=== PATIENT | male | born 2000 | race Caucasian/White ===

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

== ENCOUNTER 2022-10-02 20:32 | Emergency (ER) | payer MEDICAID, SELFPAY ==
--- NOTE | 2022-10-02 20:30 | ECG_ITS ---
APPROVED REPORT Exam: Resting ECG HR:57 bpm ECG Measurements Heart Rate 57 AXES WI 120 P 47 QRSd 93 QRS 69 QT 400 T 49 QTc 394 Conclusion SINUS BRADYCARDIA BORDERLINE ECG UNCONFIRMED REPORT Electronically signed by : Spike Collazo MD 10/03/2022 13:14:31
[2022-10-02 20:32] VITALS: BP 145/80; PULSE 77; RESP 20; TEMP 36.8; O2SAT 100; BMI 35.4
--- NOTE | 2022-10-02 20:39 | XR_ITS ---
PROCEDURE INFORMATION: Exam: XR Chest Exam date and time: 10/02/2022 8:39 PM Age: 21 years old Clinical indication: Sternal or substernal pain and left-sided; Patient HX: Left sided rib pain, sternal pain SOA; Additional info: Chest/rib pain TECHNIQUE: Imaging protocol: Radiologic exam of the chest. Views: 2 views. COMPARISON: No relevant prior studies available. FINDINGS: Lungs: Unremarkable. No consolidation. Pleural spaces: Unremarkable. No pleural effusion. No pneumothorax. Heart/Mediastinum: Unremarkable. No cardiomegaly. Bones/joints: Unremarkable. IMPRESSION: No acute findings.
[2022-10-02 20:51] LABS: Basophils # 0.3 K/mm3 (0-0.2); Basophils % 2.8 % (0.1-2.0); Eosinophils # 0.1 K/mm3 (0.0-0.4); Eosinophils % 0.8 % (0.1-12.0); Hematocrit 50.8 % (42.0-52.0); Hemoglobin 16.3 g/dL (14.1-18.0); Lymphocytes # 1.7 K/mm3 (0.7-4.5); Lymphocytes % 18.9 % (10-50); Mean Corpuscular HGB Conc 32.1 g/dL (31.8-35.4); Mean Corpuscular Hemoglobin 30.3 pg (27.0-31.2); Mean Corpuscular Volume 94.3 fl (80-94); Mean Platelet Volume 7.7 fl (7.4-10.4); Monocytes # 0.8 K/mm3 (0.1-1.0); Monocytes % 8.6 % (1.7-9.3); Neutrophils # 6.1 K/mm3 (1.8-7.8); Neutrophils % 68.8 % (37.0-80.0); Platelet Count 283 K/mm3 (142-424); Red Blood Count 5.39 M/mm3 (4.60-6.20); Red Cell Distribution Width 13.1 % (11.5-17.5); White Blood Count 8.9 K/mm3 (4.5-13.0)
[2022-10-02 21:00] LABS: Anion Gap 18.8 mEq/L (5-15); Blood Urea Nitrogen 20 mg/dl (9-20); Calcium 9.8 mg/dl (8.4-10.2); Carbon Dioxide 26 mmol/L (22.0-30.0); Chloride 97 mmol/L (98-107); Creatinine Clearance Estimated 127 mL/min (50-200); Estimated Glomerular Filt Rate 78 ml/min (>60); GFR (African American) 94 ML/MIN (>60); Glucose 88 mg/dl (74-100); Potassium 3.8 mmoL/L (3.5-5.1); Sodium 138 mmol/L (136-145)
--- NOTE | 2022-10-02 21:08 | HMH.EDCP ---
Discharge Plan Disposition Patient Disposition: Home, Self-Care Prescriptions Prescriptions: New meloxicam 15 mg tablet 15 mg PO DAILY Qty: 10 0RF No Action tolnaftate 14.18 GM cream 14 gm TP BID 7 Days Qty: 1 0RF Rx Instructions: apply cream to groin bid Referrals Follow up/Referrals: Provider,Referral, [Primary Care Provider] - See instructions Clinical Impressions Clinical Impression: Acute traumatic injury of chest wall Instructions Patient Instructions: DI for Atypical Chest Pain Discharge ED Provider: Jeremie Ramirez Chest Pain HPI General Chief Complaint: Chest Pain Stated Complaint: SOA Time Seen by Provider: 10/02/22 21:08 Mode of Arrival: Ambulatory Source of Information: Patient and Medical Record Limitations: No Limitations Description of Symptoms (Recalled from ER Triage Doc. by RN): Pt c/o soa and left rib/sternum pain. He states last night his 80 pound dog ran into his chest and caused him pain and soa .He awoke today and the soa and pain have increased as the day has went along. He denies N/V, dizziness, radiating pain. Pain is reproducable with palpation to left rib cage. History of Present Illness HPI narrative: pt with acute injury to lt chest and upper abd after trauma last pm complaint: chest pain Onset (ago): day(s) Duration: intermittent Activity at onset: other (sitting ) Pain location: left chest Severity: moderate Quality: dull Exacerbating factors: inspiration and movement Context: trauma/injury ANGEL Score for Non-Stemi Age of Patient: <30 years old Heart Rate: 50-69 bpm Systolic Blood Pressure: 120-139 mmhg Serum Creatinine: 1.20-1.59 mg/dl CHF [place] Class: I-No CHF Other Risk Factors: None Non-Stemi Risk Score: 47 Related Data Previous Rx's Medication Instructions Recorded tolnaftate 1 % topical cream 14 gm TP BID 7 days ##1 05/31/20 meloxicam 15 mg tablet 15 mg PO DAILY #10 tabs 10/02/22 Allergies Allergy/AdvReac Type Severity Reaction Status Date / Time No Known Allergies Allergy Verified 05/31/20 20:47 [facility] Medical History (Updated 10/02/22 @ 22:44 by Jeremie Ramirez MD) Abdominal pain Social History Smoking Status: Current every day smoker tobacco type: cigarettes packs per day: 1 alcohol intake: never substance use type: denies use current occupational status: student Travel in the last 8 weeks: None household members: family housing: house ROS Obtained: Yes All systems reviewed & no additional complaints except as documented Physical Exam General General appearance: alert Head Head exam: normocephalic Eye Eye exam: Present PERRL and EOMI ENT ENT exam: Present mucous membranes moist Neck Neck exam: Present trachea midline Chest Chest inspection: Present tenderness Respiratory Respiratory exam: Present normal lung sounds bilaterally; Absent respiratory distress Cardiovascular Cardiovascular exam: Present regular rate Abdominal Exam Abdominal exam: Present soft and tenderness; Absent guarding Abdominal tenderness: Present LUQ and mild Extremities Exam Extremities exam: Present full ROM Neurological Exam Neurological exam: Present alert, oriented X3 and CN II-XII intact; Absent other Psychiatric Psychiatric exam: Present normal affect Skin Skin exam: Absent rash Medical Decision Making Medical Records Medical records reviewed: Yes I reviewed the patient's medical records. Johnny Inquiry Pt receiving controlled substance: No Vital Signs: 10/02/22 20:32 Temperature 98.3 F Temperature Source Oral Pulse Rate [Apical] 77 Respiratory Rate 20 Blood Pressure [Right Arm] 145/80 H Blood Pressure Mean [Right Arm] 101 Blood Pressure Source [Right Arm] Automatic Cuff Blood Pressure Position [Right Arm] Supine 02 Sat by Pulse Oximetry 100 Oxygen Delivery Method Room Air Lab Data Lab results reviewed: Yes I reviewed the patient's lab results. Lab Results 10/02/22 20:35: W
[2022-10-02 21:12] LABS: Troponin I < 0.01 ng/ml (0.00-0.034)
--- NOTE | 2022-10-02 21:14 | CT_ITS ---
PROCEDURE INFORMATION: Exam: CT Chest With Contrast; Diagnostic Exam date and time: 10/02/2022 9:33 PM Age: 21 years old Clinical indication: Left-sided; Patient HX: Left sided chest/rib pain; Additional info: Chest pain TECHNIQUE: Imaging protocol: Diagnostic computed tomography of the chest with contrast. 3D rendering (Not supervised by radiologist): MIP and/or 3D reconstructed images were created by the technologist. Radiation optimization: All CT scans at this facility use at least one of these dose optimization techniques: automated exposure control; mA and/or kV adjustment per patient size (includes targeted exams where dose is matched to clinical indication); or iterative reconstruction. Contrast material: ISOVUE; Contrast volume: 75 ml; Contrast route: IV; COMPARISON: CR XR CHEST 2V 10/02/2022 8:39 PM FINDINGS: Lungs: Unremarkable. No consolidation. No masses. Pleural spaces: Unremarkable. No pneumothorax. No pleural effusion. Heart: Unremarkable. No cardiomegaly. No pericardial effusion. Lymph nodes: Unremarkable. No enlarged lymph nodes. Vasculature: Unremarkable. No aortic aneurysm. Bones/joints: Unremarkable. No acute fracture. Soft tissues: Unremarkable. Other findings: Please see separate report for abdomen/pelvis. Stigmata of old granulomatous disease. IMPRESSION: No acute intrathoracic organ injury.
--- NOTE | 2022-10-02 21:16 | CT_ITS ---
PROCEDURE INFORMATION: Exam: CT Abdomen And Pelvis With Contrast Exam date and time: 10/02/2022 9:33 PM Age: 21 years old Clinical indication: Abdominal pain; Generalized; Patient HX: Luq pain; Additional info: Luq pain after injury TECHNIQUE: Imaging protocol: Computed tomography of the abdomen and pelvis with contrast. Radiation optimization: All CT scans at this facility use at least one of these dose optimization techniques: automated exposure control; mA and/or kV adjustment per patient size (includes targeted exams where dose is matched to clinical indication); or iterative reconstruction. Contrast material: ISOVUE; Contrast volume: 75 ml; Contrast route: IV; COMPARISON: CR XR CHEST 2V 10/02/2022 8:39 PM FINDINGS: Liver: Mild fatty infiltration of the liver along the falciform ligament. Gallbladder and bile ducts: Normal. No calcified stones. No ductal dilation. Pancreas: Normal. No ductal dilation. Spleen: Normal. No splenomegaly. Adrenal glands: Normal. No mass. Kidneys and ureters: Low attenuation renal lesions measuring up to 6 mm in diameter are incompletely characterized, but are likely cysts. No followup imaging is warranted. Prominent extrarenal pelvis of the left kidney of doubtful clinical significance. Stomach and bowel: Unremarkable. No obstruction. No mucosal thickening. Appendix: Unremarkable appendix. Intraperitoneal space: Unremarkable. No free air. No significant fluid collection. Vasculature: Unremarkable. No abdominal aortic aneurysm. Lymph nodes: Unremarkable. No enlarged lymph nodes. Urinary bladder: Moderate urinary bladder distention. Reproductive: Unremarkable as visualized. Bones/joints: Unremarkable. No acute fracture. Soft tissues: Tiny fat containing umbilical hernia. Other findings: Stigmata of old granulomatous disease. Please see separate report for CT chest. IMPRESSION: No acute intra-abdominal or intrapelvic organ injury. COMMENTS: Consistent with the [employer]'s Incidental Findings Committee white paper (J Am Jeremiah Radiol 2018): Any incidental renal lesion less than 1 cm or classified as too small to characterize, or any incidental cystic renal lesion characterized as simple-appearing, is likely benign. No follow-up imaging is recommended for these lesions per consensus recommendations based on imaging criteria.
[2022-10-02 21:48] LABS: Alanine Aminotransferase 29 U/L (12-78); Alkaline Phosphatase 63 U/L (38-126); Amylase 65 U/L (30-110); Aspartate Amino Transferase 35 U/L (17-59); Bilirubin,Direct 0.2 mg/dl (0.0-0.4); Bilirubin,Indirect 0.6 mg/dL (0.0-0.9); Bilirubin,Total 0.8 mg/dl (0.2-1.3); Bilirubin,Unconjugated 0.6 mg/dL (0.0-1.1); Lipase 55 U/L (23-300)
[2022-10-02 21:49] LABS: Albumin Level 5.1 g/dl (3.5-5.0); Total Protein,Serum 8.2 g/dl (6.3-8.2)
[2022-10-02 22:48] VITALS: BP 134/71; PULSE 55; RESP 18; TEMP 37.1; O2SAT 97
== END 2022-10-02 22:52 | disposition home or self-care (01) ==
PROVIDERS: Emergency Provider Emergency Medicine
DX: R10.32 Left lower quadrant pain (principal); R07.81 Pleurodynia; R06.02 Shortness of breath; F17.210 Nicotine dependence, cigarettes, uncomplicated
CPT/HCPCS: 71046; 71260; 74177; 80048; 80076; 82150; 83690; 84484; 85025; 93005; 96374; 99285; Q9967

== ENCOUNTER 2024-04-12 22:12 | Emergency (ER) | payer SELFPAY ==
[2024-04-12 22:13] VITALS: BP 138/75; PULSE 64; RESP 20; TEMP 36.9; O2SAT 98; BMI 26.2
--- NOTE | 2024-04-12 22:33 | ED_ITS ---
Discharge Plan Disposition Patient Disposition: Home, Self-Care Condition: Good Prescriptions Prescriptions: No Action tolnaftate 14.18 GM cream 14 gm TP BID 7 Days Qty: 1 0RF Rx Instructions: apply cream to groin bid meloxicam 15 mg tablet 15 mg PO DAILY Qty: 10 0RF Referrals Follow up/Referrals: Provider,Referral, [Primary Care Provider] - See instructions Activity Restrictions/Add. Instructions Additional Instructions/Restrictions: You were evaluated in the emergency department today. Please take Tylenol and ibuprofen at home as needed for pain and fever. Make sure that you stay hydrated. Return to the emergency department for new or worsening symptoms. Clinical Impressions Clinical Impression: Pharyngitis Stand Alone Forms Stand Alone Forms: Work/School Release Instructions Patient Instructions: DI for Pharyngitis/Tonsillopharyngitis -- Adult Discharge ED Provider: Sondra Nowak General Adult HPI General Chief complaint: Upper Respiratory Infection Stated complaint: sore throat,feels like thraot is closing Time Seen by Provider: 04/12/24 22:17 Mode of Arrival: Ambulatory Source of Information: Patient Limitations: No Limitations Description of Symptoms (Recalled from ER Triage Doc. by RN): Pt. presents to the ED with c/o throat swelling and difficulty swallowing. started 2 days ago and has gotten worse. History of Present Illness HPI narrative: This patient is a 23-year-old male without significant past medical history presenting to the emergency department for evaluation with concern for sore throat that is worse with swallowing. States that it started about 3 days ago and has gotten significant worse since then. His at home is also sick. No other concerns, such as cough, congestion, abdominal pain, vomiting, or other concerns. He is still able to eat and drink. Related Data Previous Rx's Medication Instructions Recorded tolnaftate 1 % topical cream 14 gm TP BID 7 days ##1 05/31/20 meloxicam 15 mg tablet 15 mg PO DAILY #10 tabs 10/02/22 Allergies Allergy/AdvReac Type Severity Reaction Status Date / Time No Known Allergies Allergy Verified 05/31/20 20:47 [facility] Disclaimer: The information contained in this section may have been updated after the patient was seen, as this information can be updated by other users. Medical History Abdominal pain Social History Smoking Status: Current every day smoker tobacco type: cigarettes packs per day: 1 alcohol intake: never substance use type: denies use current occupational status: student Travel in the last 8 weeks: None household members: family housing: house ROS Obtained: Yes All systems reviewed & no additional complaints except as documented Physical Exam General General appearance: alert and in no apparent distress Head Head exam: atraumatic and normocephalic Eye Eye exam: Present normal appearance, PERRL and EOMI ENT ENT exam: Present mucous membranes moist and normal external ear exam; Absent normal oropharynx (Posterior oropharyngeal erythema with no exudates or edema. No uvular or tonsillar deviation.) Expanded ENT Exam Nasal speculum exam: Bilateral: normal Mouth exam: Present normal external inspection and tongue normal; Absent drooling, trismus, lip swelling, tongue elevation or tongue swelling Teeth exam: Present normal inspection Throat exam: Present tonsillar erythema; Absent tonsillomegaly or tonsillar exudate Neck Neck exam: Present normal inspection, full ROM and trachea midline; Absent tenderness Chest Chest inspection: Present normal inspection and symmetric chest wall rise; Absent tenderness Respiratory Respiratory exam: Present normal lung sounds bilaterally; Absent respiratory distress, wheezes, stridor or accessory muscle use Cardiovascular Cardiovascular exam: Present regular rate and normal rhythm Abdominal Exam Abdominal exam: Present soft; Absent distention, tenderness or guarding Extremities Exam Extremities exam: Present normal inspection, full ROM and normal capillary refill; Absent tenderness or edema Back Exam Back exam: Present normal inspection and full ROM; Absent tenderness Neurological Exam Neurological exam: Present alert, oriented X3, CN II-XII intact and normal gait; Absent motor sensory deficit Psychiatric Psychiatric exam: Present normal affect and normal mood Skin Skin exam: Present warm and dry Medical Decision Making Medical Records Medical records reviewed: Yes I reviewed the patient's medical records. Johnny Inquiry Pt receiving controlled substance: No Vital Signs: 04/12/24 22:13 04/12/24 23:14 Temperature 98.4 F 98.4 F Temperature Source Oral Oral Pulse Rate 64 Pulse Rate [Right Radial] 64 Respiratory Rate 20 18 Blood Pressure 134/75 Blood Pressure [Right Arm] 138/75 Blood Pressure Mean [Right Arm] 96 Blood Pressure Source [Right Arm] Automatic Cuff Blood Pressure Position [Right Arm] Sitting 02 Sat by Pulse Oximetry 98 Oxygen Delivery Method Room Air Lab Data Lab results reviewed: Yes I reviewed the patient's lab results. Lab Results 04/12/24 22:48: Group A Strep Rapid Negative Orders (Tests/Meds): ED MEDICATIONS Discontinued Medications Generic Name Dose Route Start Last Admin Trade Name Francisco PRN Reason Stop Dose Admin Acetaminophen 1,000 mg 04/12/24 22:32 04/12/24 22:41 Acetaminophen 500mg Tab PO 04/12/24 22:33 1,000 mg ONCE ONE Administration Dexamethasone 10 mg 04/12/24 22:32 04/12/24 22:41 Dexamethasone 4mg Tablet PO 04/12/24 22:33 10 mg ONCE ONE Administration Ibuprofen 800 mg 04/12/24 22:32 04/12/24 22:41 Ibuprofen 400 Mg Tablet PO 04/12/24 22:33 800 mg ONCE ONE Administration Tetracycl/Hydrocort/Nystatin/Diphen 15 ml 04/12/24 22:32 04/12/24 22:41 Magic Mouthwash 300ml Bottle PO 04/12/24 22:33 15 ml ONCE ONE Administration ORDERS Category Date Time Status Rapid PCR Covid and Flu A/B Routine Lab 04/12/24 22:52 Received Strep Scrn Group A (Rapid) Stat Lab 04/12/24 22:48 Completed Strep Screen Confirmation Stat Micro 04/12/24 22:48 Received Medical Decision Narrative: In summary, this patient is a 23-year-old male presenting to the Emergency Department for evaluation of sore throat. Differential diagnoses considered include but are not limited to strep pharyngitis, viral pharyngitis, tonsillar abscess, retropharyngeal abscess. Ruling out the most morbid conditions drove assessment. On exam, the patient is very well-appearing. He has no drooling, trismus, or other concerns. No muffled voice. He is still eating and drinking without difficulty and is tolerating secretions just fine. No stridor or respiratory distress. He does have some posterior pharyngeal erythema, but no exudates or edema. Viral and strep swabs were sent. Patient was given oral dexamethasone, Tylenol, ibuprofen, and Magic mouthwash for symptomatic improvement. Strep swab came back negative. On reassessment, the patient is resting, with significantly improved symptoms. He is tolerating oral intake without difficulty. Given this, feel it is appropriate for discharge with instructions for supportive management of viral syndrome. He was given strict return precautions. Critical Care Critical Care Time Critical Care Time: No
[2024-04-12] MEDS: ACETAMINOPHEN 500MG TAB 1000 MG PO (22:41)
[2024-04-12] MEDS: IBUPROFEN 400 MG TABLET 800 MG PO (22:41)
[2024-04-12] MEDS: DEXAMETHASONE 4MG TABLET 10 MG PO (22:41)
[2024-04-12] MEDS: MAGIC MOUTHWASH 300ML BOTTLE 15 ML PO (22:41)
[2024-04-12 22:53] LABS: Coronavirus 19, PCR Not Detected (NotDetected); Influenza A, PCR Not Detected (NotDetected); Influenza B, PCR Not Detected (NotDetected)
[2024-04-12 23:03] LABS: Strep Scrn Group A (Rapid) Negative (Negative)
[2024-04-12 23:14] VITALS: BP 134/75; PULSE 64; RESP 18; TEMP 36.9; O2SAT 99
== END 2024-04-12 23:17 | disposition home or self-care (01) ==
PROVIDERS: Emergency Provider Emergency Medicine
DX: J02.9 Acute pharyngitis, unspecified (principal); F17.210 Nicotine dependence, cigarettes, uncomplicated
CPT/HCPCS: 87430; 87636; 99283